=== PATIENT | female | born 2000 | race African-American/Black ===

== ENCOUNTER 2022-02-21 22:33 | Emergency (ER) | payer MEDICAID, OTHER ==
[~2022-02-21] VITALS: Ht 170 cm; Wt 111.1 kg
[~2022-02-21 22:33] MED LIST: SULF1TAB35 PO
[2022-02-21 22:39] VITALS: BP 150/96
--- NOTE | 2022-02-21 23:01 | ED Back Pain ---
General Chief Complaint: Back Problems Stated Complaint: SPINAL/NECK PAIN Nursing Triage Note: c/o upper/lower back pain x2 days, denies injury. Source of Information: Patient Exam Limitations: No Limitations History of Present Illness Date Seen by Provider: Feb 21, 2022 Time Seen by Provider: 22:53 Initial Comments Patient is a 21-year-old female who presents to the emergency department with a chief complaint of 3 days of lower back pain. She states the pain seems to radiate around the top of her hips from the center of her back into her lower abdomen. She denies any nausea, vomiting or diarrhea today. She was a little nauseous and describes a 101 fever yesterday. No URI symptoms reported, no cough or chest pain. No shortness of breath. No COVID concerns or flu concerns. No burning with urination or abnormal vaginal discharge. No black or bloody stools. She states she is taken Tylenol without relief of symptoms. No rashes, joint pain or swelling. No traumatic injuries reported. No significant heavy lifting above and beyond her normal work duties. Last menstrual period was about 2 weeks ago. She is on control. All other review of systems reviewed and negative except as stated. Timing/Duration: 2-3 Days Severity: Moderate Pain/Injury Location: Back Radiation: Other (abdomen) Modifying Factors: Improves With Immobilization Associated Symptoms: denies symptoms Allergies and Home Medications Allergies Coded Allergies: No Known Allergies (Unverified Allergy, Mild, 02/09/10) Patient Home Medication List Home Medication List Reviewed: Yes Discontinued Medications Sulfamethoxazole/Trimethoprim (Bactrim DS) 1 Each Tablet, 1 EACH PO BID Discontinued Reason: No Longer Taking Prescribed by: SUZY ROSE on 02/09/102112 Last Action: Discontinued Review of Systems Constitutional: fever (101 yesterday) EENTM: no symptoms reported Respiratory: no symptoms reported Cardiovascular: no symptoms reported Gastrointestinal: abdominal pain, nausea (yesterday) Genitourinary: no symptoms reported Musculoskeletal: back pain (low) Skin: no symptoms reported Psychiatric/Neurological: No Symptoms Reported All Other Systems Reviewed Negative Unless Noted: Yes Past Krgylod-Efmkph-Kvplre Hx Patient Social History Tobacco Use?: No Substance use?: No Alcohol Use?: No Pt feels they are or have been: No Past Medical History Surgery/Hospitalization HX: denies Last Menstrual Period: Feb 07, 2022 Physical Exam Vital Signs Vital Signs - First Documented 02/21/22 22:39 Temp 36.5 Pulse 111 Resp 16 B/P (MAP) 150/96 (114) Pulse Ox 99 O2 Delivery Room Air Capillary Refill : Less Than 3 Seconds Height, Weight, BMI Height: '" Weight: 122lbs. oz. 55.083678yx; 38.00 BMI Method: General Appearance: No Apparent Distress, WD/WN HEENT: PERRL/EOMI Neck: Normal Inspection, Non Tender, Supple Cardiovascular: Regular Rate, Rhythm, Normal Peripheral Pulses Respiratory: Lungs Clear, Normal Breath Sounds, No Accessory Muscle Use, No Respiratory Distress Gastrointestinal: Normal Bowel Sounds, Non Tender, Soft Back: Normal Inspection, No CVA Tenderness, Vertebral Tenderness (mild with lower lumbar paraspinous muscle tenderness) Extremity: Normal Capillary Refill, Normal Inspection, Normal Range of Motion, Non Tender, No Calf Tenderness Neurologic/Psychiatric: Alert, Oriented x3, No Motor/Sensory Deficits, Normal Mood/Affect, armed security officer II-XII Norm as Tested, Other (2+ patellar DTRs bilaterally. Normal plantar and dorsiflexion of the feet bilaterally. Good strength in the bilateral lower extremities. Negative straight leg raise bilaterally) Skin: Normal Color, Warm/Dry Progress/Results/Core Measures Results/Orders Vital Signs/I&O 02/21/22 22:39 Temp 36.5 Pulse 111 Resp 16 B/P (MAP) 150/96 (114) Pulse Ox 99 O2 Delivery Room Air Blood Pressure Mean: 114 Departure Impression Primary Impression: Low back pain Qualified Codes: M54.50 - Low back pain, unspecified Disposition: 01 HOME, SELF-CARE Condition: Stable Departure-Patient Inst. Decision time for Depature: 23:03 Referrals: [facility],LOCAL PHYSICIAN (PCP) Primary Care Physician Patient Instructions: Low Back Pain in Adults Add. Discharge Instructions: Alternate heat and ice to the areas that are sore in your low back. Gentle stretching exercises may help. Avoid significant heavy lifting over the next 24 to 48 hours. You can take lbrk-tjb-wdahcog Aleve, 2 tablets with food in the morning and 2 at night for pain. Or you can take ibuprofen, 3 tablets which is 600 mg every 6 hours with food as needed for pain. Return to the emergency department for any new, concerning or emergent complaints or worsening symptoms. SCOTTIE CARVALHO MD Feb 21, 2022 23:01
[2022-02-21] MEDS ORDERED: ORPHENADRINE 60 MG/2 ML (NORFLEX) AMP (ED ONLY) IM ONE (23:15)
[2022-02-21] MEDS ORDERED: KETOROLAC 60 MG/2 ML VIAL IM ONE (23:15)
== END 2022-02-21 23:22 | disposition home or self-care (01) ==
LOC: EDUNIT# 22:33 → ER 22:36
DX: M54.50 Low back pain, unspecified (principal)
CPT/HCPCS: 84703; 99284

== ENCOUNTER 2022-09-14 17:29 | Outpatient (CLI) | payer MEDICAID ==
[~2022-09-14] VITALS: Ht 167.7 cm; Wt 105.0 kg
[2022-09-14 18:00] VITALS: BP 123/68
[2022-09-14] MEDS ORDERED: PREN-37 PO (18:01)
[2022-09-14 18:05] VITALS: BP 123/68
[2022-09-14 18:20] LABS: CLARITY,URINE SL CLOUDY; COLOR,URINE DARK YELLOW; GLUCOSE, URINE (UA) NEGATIVE (NEGATIVE); KETONES,URINE 3+ (NEGATIVE); LEUKOCYTE ESTERASE ,URINE 2+ (NEGATIVE); NITRITE,URINE NEGATIVE (NEGATIVE); PH,URINE 6.5 (5-9); PROTEIN,URINE 2+ (NEGATIVE)
[2022-09-14 18:32] LABS: BACTERIA,URINE FEW /HPF; BILIRUBIN,URINE 2+ (NEGATIVE); WBC,URINE 25-50 /HPF; YEAST,URINE FEW /HPF
[2022-09-14 18:40] VITALS: BP 113/57
[2022-09-14] MEDS ORDERED: NS IV 1000 ML 1,000 ML IV SCH (18:45)
[2022-09-14 18:57] LABS: HEMATOCRIT 39 % (35-52); MEAN CORPUSCULAR HEMOGLOBIN 29 pg (25-34); MEAN CORPUSCULAR HGB CONC 33 g/dL (32-36); MEAN CORPUSCULAR VOLUME 86 fL (80-99); MEAN PLATELET VOLUME 10.5 fL (9.0-12.2); PLATELET COUNT 201 10^3/uL (130-400); WHITE BLOOD COUNT 15.6 10^3/uL (4.3-11.0)
[2022-09-14 20:24] LABS: ALBUMIN 3.1 GM/DL (3.2-4.5); BILIRUBIN,TOTAL 0.6 MG/DL (0.1-1.0); CREATININE SERUM 0.71 MG/DL (0.60-1.30); POTASSIUM 3.1 MMOL/L (3.6-5.0); TOTAL PROTEIN 6.7 GM/DL (6.4-8.2)
[2022-09-14] MEDS ORDERED: KCL 20 MEQ TAB (K-DUR) PO ONE ×2 (21:00→21:07)
[2022-09-14] MEDS ORDERED: ONDANSETRON 4 MG (ZOFRAN) ORAL DISSOLVE TAB PO ONE (21:00)
[2022-09-14] MEDS ORDERED: ONDANSETRON 4 MG (ZOFRAN) ORAL DISSOLVE TAB ONE (21:06)
--- NOTE | 2022-09-15 08:17 | Physician Query-Final Dx ---
09/15/22 0817: Clinic Account Progress/Dx Physician Query: Please give diagnosis Please include # weeks gestation Date of Service Sep 14, 2022 at 17:29 DEBBIE CHRISTENSEN MD 09/15/22 1640: Clinic Account Progress/Dx DIAGNOSIS: Diagnosis Nausea and vomiting Urinary Tract Infection Second trimester 27 weeks gestation ,NovSep 15, 2022 08:17 DEBBIE CHRISTENSEN MD Sep 15, 2022 16:40
== END 2022-09-14 21:36 | disposition home or self-care (01) ==
LOC: WSo 17:29 → LDRP 17:29 → WSo 21:36
PROVIDERS: ATTEND Family Medicine
DX: O23.42 Unspecified infection of urinary tract in pregnancy, second trimester (principal); O26.892 Other specified pregnancy related conditions, second trimester; R11.2 Nausea with vomiting, unspecified; Z3A.27 27 weeks gestation of pregnancy
CPT/HCPCS: 36415; 80053; 81000; 85027; 87088; 96360; 99214

== ENCOUNTER 2022-11-13 11:18 | Emergency (ER) | payer MEDICAID ==
[~2022-11-13] VITALS: Ht 167.7 cm; Wt 110.9 kg
[~2022-11-13 11:18] MED LIST changes: +PREN-37 PO
--- NOTE | 2022-11-13 11:43 | ED General ---
General Chief Complaint: General Problems/Pain Stated Complaint: SOA | FEELS FAINT Nursing Triage Note: pt states since she woke up this morning she has been short of breath and dizzy. states nausea and vomiting yesterday, denies fever. pt is 36 weeks due date 12/11/22 Source of Information: Patient Exam Limitations: No Limitations (SAEDENROBYN) History of Present Illness Date Seen by Provider: Nov 13, 2022 Time Seen by Provider: 11:38 Initial Comments 22 F @ 36 wks presents with SOA and dizziness. reports she was unable to catch her breath and felt wobbly which has never happened before. yesterday at [facility] appt she became nauseas and vomited, but claims no in sighting events. During dizziness spells pt become diaphoretic which resolves once she sits down and takes a few deep breaths. No problems with voiding or BMs. Denies any complications with . Denies any fever, chills, pain, palpitations, or LOC. Significant other noticed her "gasping for air" during the night, which was the first time this has been noticed. Denies any sick contacts. Claims normal vaginal discharge but no blood or copious amounts of fluid. Pt reports she has been able to feel movements. Timing/Duration: 12 Hours Severity: Mild Associated Systoms: No Chest Pain, No Cough; Diaphoresis; No Fever/Chills, No Headaches; Loss of Appetite (mild), Nausea/Vomiting, Shortness of Air (SAUCEROBYN) Allergies and Home Medications Allergies Coded Allergies: NKANo Known Allergies (Unverified Allergy, Mild, 02/09/10) Patient Home Medication List Home Medication List Reviewed: Yes (JENNYROBYN) Vit/Iron Fumarate/FA ( Tablet) 27 Mg Iron-800 Mcg Tablet, 1 EACH PO DAILY, (Reported) Entered as Reported by: RAMILA FATIMA on 09/14/22 341 Review of Systems Review of Systems Constitutional: No chills; diaphoresis, dizziness; No fever EENTM: blurred vision (during dizziness events); No vision loss Respiratory: No cough; dyspnea on exertion; No phlegm; short of breath Cardiovascular: No chest pain, No edema, No palpitations Gastrointestinal: No abdominal pain, No constipation, No diarrhea; nausea, vomiting Genitourinary: No decreased output, No discharge, No dysuria, No frequency : Yes Expected Date of Delivery: Dec 11, 2022 Musculoskeletal: back pain Skin: No change in color, No change in hair/nails Psychiatric/Neurological: No Symptoms Reported Hematologic/Lymphatic: No Symptoms Reported Immunological/Allergic: no symptoms reported (SAEDENROBYN) Past Uvmjxqp-Tgjdgf-Gcyaah Hx Patient Social History Tobacco Use?: No Substance use?: No Alcohol Use?: No (SAUCE,ROBYN) Immunizations Up To Date Influenza Vaccine Up-to-Date: No; Not Current (SAUCE,ROBYN) Past Medical History Surgery/Hospitalization HX: denies (SAUCEROBYN) Physical Exam Vital Signs Vital Signs - First Documented 11/13/22 11:25 Temp 35.9 Pulse 91 Resp 18 B/P (MAP) 127/86 (100) Pulse Ox 99 O2 Delivery Room Air (SCOTTIE CARVALHO MD) Vital Signs Capillary Refill : Less Than 3 Seconds (ROBYN ALVARADO) Height, Weight, BMI Height: '" Weight: 122lbs. oz. 55.185564tk; 39.00 BMI Method: General Appearance: No Apparent Distress, WD/WN Eyes: Bilateral Eye Normal Inspection, Bilateral Eye PERRL, Bilateral Eye EOMI, Bilateral Eye Abnormal EOM HEENT: PERRL/EOMI Neck: Full Range of Motion, Normal Inspection, Non Tender, Supple Respiratory: Chest Non Tender, Lungs Clear, Normal Breath Sounds, No Accessory Muscle Use, No Respiratory Distress Cardiovascular: Regular Rate, Rhythm, No Edema, No Murmur, Normal Peripheral Pulses Gastrointestinal: Normal Bowel Sounds, No Pulsatile Mass, Non Tender, Soft, Other (gravid ) Back: Normal Inspection, No CVA Tenderness, No Vertebral Tenderness Extremity: Normal Capillary Refill, Normal Inspection, Non Tender, No Calf Tenderness, No Pedal Edema Neurologic/Psychiatric: Alert, Oriented x3, No Motor/Sensory Deficits Skin: Normal Color, Warm/Dry Lymphatic: No Adenopathy (SAROSS HARMONROBYN) Progress/Results/Core Measures Suspected Sepsis SIRS Temperature: Pulse: 91 Respiratory Rate: 18 Blood Pressure 127 /86 Mean: 100 (LAUREANO ALVARADOON) Results/Orders My Orders Orders - SCOTTIE CARVALOH MD Heart Tones (11/13/22 11:42) (SCOTTIE CARVALHO MD) Vital Signs/I&O 11/13/22 11/13/22 11/13/22 11:25 11:30 12:07 Temp 35.9 36.7 Pulse 91 88 Resp 18 18 B/P (MAP) 127/86 (100) 137/84 Pulse Ox 99 98 O2 Delivery Room Air Room Air Room Air (SCOTTIE CARVALHO MD) Vital Signs/I&O Capillary Refill : Less Than 3 Seconds (SAUCEROBYN) Blood Pressure Mean: 100 Progress Note : Time: 11:56 Progress Note Patient seen and examined by me. I have reviewed and agree with medical student's documentation. 22yo female, with PNC through Dr Phoenix. C/o SOB worse with moving around. No other associated symptoms. Maybe a little nild cramping yest. Seen by OB yest. No problems with . No swelling, headache, vision changes. Non smoker. No fam history of blood clots. No recent illnesses. PE: remarkable for gravid abdomen. NT. + FHTs 143. no LE edema, no calf pain or Karol's. VSS (BP 127/86) Sats 99% on RA with even and unlabored resps and clear lungs. Assessment: dyspnea; term preg Plan: follow up with OB as directed. return precautions. (SCOTTIE CARVALHO MD) Departure Impression Primary Impression: Dyspnea Qualified Codes: R06.00 - Dyspnea, unspecified Additional Impression: Term Disposition: 01 HOME, SELF-CARE Condition: Stable Departure-Patient Inst. Decision time for Depature: 12:00 (SCOTTIE CARVALHO MD) Referrals: CARMINE PHOENIX MD (PCP/Family) Primary Care Physician Patient Instructions: - The Ninth Month Add. Discharge Instructions: Drink plenty of fluids to stay well hydrated. If you have any worsening shortness of breath, especially with severe headache, swelling in legs or worsening abdominal pain/cramping - please come back to the Emergency Department for re-evaluation. Keep your scheduled follow up with Dr Phoenix. Verification and Attestation of Medical Student E/M Service A medical student performed and documented this service in my presence. I reviewed and verified all information documented by the medical student and made modifications to such information, when appropriate. I personally performed the physical exam and medical decision making. Scottie Carvalho, Nov 13, 2022,12:01 (SCOTTIE CARVALHO MD) Copy Copies To 1: CARMINE PHOENIX MD, DAULTON Nov 13, 2022 11:43 SCOTTIE CARVALHO MD Nov 13, 2022 12:01
[2022-11-13 12:07] VITALS: BP 137/84
== END 2022-11-13 12:08 | disposition home or self-care (01) ==
LOC: EDUNIT# 11:18 → ER 11:20
DX: O99.513 Diseases of the respiratory system complicating pregnancy, third trimester (principal); R06.00 Dyspnea, unspecified; Z3A.36 36 weeks gestation of pregnancy

== ENCOUNTER 2022-12-16 19:30 | Inpatient (IN) | payer MEDICAID ==
[~2022-12-16] VITALS: Ht 167.7 cm; Wt 115.2 kg
[2022-12-16 20:00] VITALS: BP 131/78
[2022-12-16] MEDS ORDERED: D5 LR IV SOLUTION 1,000 ML IV ONE (20:25)
[2022-12-16] MEDS ORDERED: AMPICILLIN FOR IV USE 2,000 MG in NS (IVPB) 50 ML IV SCH (20:33)
[2022-12-16 20:44] LABS: BILIRUBIN,URINE NEGATIVE (NEGATIVE); CLARITY,URINE CLOUDY; COLOR,URINE YELLOW; GLUCOSE, URINE (UA) NEGATIVE (NEGATIVE); KETONES,URINE NEGATIVE (NEGATIVE); LEUKOCYTE ESTERASE ,URINE TRACE (NEGATIVE); NITRITE,URINE NEGATIVE (NEGATIVE); PROTEIN,URINE NEGATIVE (NEGATIVE)
[2022-12-16] MEDS ORDERED: MINERAL OIL 30 ML UDC TOP PRN (20:45)
[2022-12-16] MEDS ORDERED: CATHETER FLUSH 10 ML SYR IV PRN (20:45)
[2022-12-16 20:46] LABS: BASOPHILS % (AUTO) 0 % (0-10); MEAN CORPUSCULAR HGB CONC 33 g/dL (32-36)
[2022-12-16 20:48] LABS: EOSINOPHILS % (AUTO) 0 % (0-10); HEMATOCRIT 36 % (35-52); HEMOGLOBIN 11.8 g/dL (11.5-16.0); LYMPHOCYTES # (AUTO) 2.3 10^3/uL (1.0-4.0); LYMPHOCYTES % (AUTO) 21 % (12-44); MEAN CORPUSCULAR HEMOGLOBIN 27 pg (25-34); MEAN CORPUSCULAR VOLUME 83 fL (80-99); MEAN PLATELET VOLUME 11.8 fL (9.0-12.2); MONOCYTES # (AUTO) 1.5 10^3/uL (0.0-1.0); MONOCYTES % (AUTO) 14 % (0-12); NEUTROPHILS # (AUTO) 7.1 10^3/uL (1.8-7.8); NEUTROPHILS % (AUTO) 64 % (42-75); PLATELET COUNT 203 10^3/uL (130-400); WHITE BLOOD COUNT 11.1 10^3/uL (4.3-11.0)
[2022-12-16 20:50] LABS: SMEAR SCAN COMMENT YES
[2022-12-16] MEDS: D5 LR IV SOLUTION 1,000 ML IV SCH (20:51)
[2022-12-16 20:52] LABS: AMORPHOUS SEDIMENT,UR LARGE AMOR PHOSPHATE /LPF; WBC,URINE 0-2 /HPF
[2022-12-16 20:53] VITALS: BP 111/65
[2022-12-16 20:54] LABS: BACTERIA,URINE MODERATE /HPF
[2022-12-16] MEDS ORDERED: diphenhydrAMINE 25 MG TAB (BENADRYL) PO ONE (22:15)
[2022-12-16 23:35] VITALS: BP 122/71
[2022-12-17] VITALS (43 sets, daily range): BP systolic 97–158; BP diastolic 51–99
[2022-12-17] MEDS: AMPICILLIN FOR IV USE 1,000 MG in NS (IVPB) 50 ML IV SCH ×4 (01:01→13:17)
[2022-12-17] MEDS: D5 LR IV SOLUTION 1,000 ML IV SCH ×2 (05:19→09:23)
--- NOTE | 2022-12-17 07:18 | History & Physical-OB ---
OB - Chief Complaint & HPI Date/Time Date of Admission: Date of Admission: Dec 16, 2022 at 19:30 Date seen by a Provider: Dec 17, 2022 Time Seen by a Provider: 06:20 Chief Complaint/History OB-Reason for Admission/Chief: Induction of Labor Hx : 1 Hx Para: 0 Expected Date of Delivery: Dec 11, 2022 Gestational Age in Weeks: 40 Gestational Age in Days: 5 Indication for induction: post dates Admission Nurse Assessment Rev: Yes History of Labs GBS positive Allergies and Home Medications Allergies Coded Allergies: No Known Drug Allergies (Unverified , 12/16/22) Patient Home Medication List Home Medication List Reviewed: Yes Vit/Iron Fumarate/FA ( Tablet) 27 Mg Iron-800 Mcg Tablet, 1 EACH PO DAILY, (Reported) Entered as Reported by: RAMILA FATIMA on 09/14/221800 Last Action: Last Taken Edited OB - History Hx of Present Care: Yes Ultrasounds: Normal mid trimester US Obstetrical Complications: None Medical Complications: None Patient Past Medical History No chronic medical problems Immunizations Influenza Vaccine Up-to-Date: No; Not Current OB - Admission Exam Physical Exam Vitals: Vital Signs 12/16/22 12/17/22 20:00 06:34 Temp 36.2 Pulse 93 Resp 16 B/P (MAP) 124/61 (82) Pulse Ox 99 O2 Delivery Room Air HEENT: Moist Membranes Heart: Rhythm Normal Lungs: Clear Abdomen: Gravid Cervical Dilatation: 1cm Effacement: 50% Station: -3 Membranes: Intact Heart Rate: 140's Accelerations: Accelerations Present Decelerations: No Decelerations Short Term Variability: Present Fdc Variability: Average (6-25) Contractions on Admission: >10 Minutes Apart (on presentation) Intensity: Mild Wilcox Scoring Tool (Modified) Dilation (cm): 1-2cm (1) Effacement (%): 31-51% (1) Descent/Station: -3 (0) Cervix Consistency: Medium(1) Cervix Position: Middle/Mid-Position (1) Wilcox Score: 2 Labs Laboratory Tests Test 12/16/22 20:39 Range/Units White Blood Count 11.1 H 4.3-11.0 10^3/uL Red Blood Count 4.31 3.80-5.11 10^6/uL Hemoglobin 11.8 11.5-16.0 g/dL Hematocrit 36 35-52 % Mean Corpuscular Volume 83 80-99 fL Mean Corpuscular Hemoglobin 27 25-34 pg Mean Corpuscular Hemoglobin Concent 33 32-36 g/dL Red Cell Distribution Width 13.3 10.0-14.5 % Platelet Count 203 130-400 10^3/uL Mean Platelet Volume 11.8 9.0-12.2 fL Immature Granulocyte % (Auto) 1 % Neutrophils (%) (Auto) 64 42-75 % Lymphocytes (%) (Auto) 21 12-44 % Monocytes (%) (Auto) 14 H 0-12 % Eosinophils (%) (Auto) 0 0-10 % Basophils (%) (Auto) 0 0-10 % Neutrophils # (Auto) 7.1 1.8-7.8 10^3/uL Lymphocytes # (Auto) 2.3 1.0-4.0 10^3/uL Monocytes # (Auto) 1.5 H 0.0-1.0 10^3/uL Eosinophils # (Auto) 0.0 0.0-0.3 10^3/uL Basophils # (Auto) 0.0 0.0-0.1 10^3/uL Immature Granulocyte # (Auto) 0.1 0.0-0.1 10^3/uL Percent Immature Platelet Fraction 5.4 0.0-7.6 % Urine Color YELLOW Urine Clarity CLOUDY Urine pH 8.0 5-9 Urine Specific [place] 1.020 1.016-1.022 Urine Protein NEGATIVE NEGATIVE Urine Glucose (UA) NEGATIVE NEGATIVE Urine Ketones NEGATIVE NEGATIVE Urine Nitrite NEGATIVE NEGATIVE Urine Bilirubin NEGATIVE NEGATIVE Urine Urobilinogen 0.2 < = 1.0 MG/DL Urine Leukocyte Esterase TRACE H NEGATIVE Urine RBC (Auto) NEGATIVE NEGATIVE Urine RBC NONE /HPF Urine WBC 0-2 /HPF Urine Squamous Epithelial Cells 10-25 H /HPF Urine Crystals PRESENT H /LPF Urine Amorphous Sediment LARGE DAVEY PHOSPHATE H /LPF Urine Bacteria MODERATE H /HPF Urine Casts NONE /LPF Urine Mucus MODERATE H /LPF Urine Culture Indicated YES Smear Scan YES OB - Assessment/Plan/Diagnosis Assessment Assessment: induction of labor Admission Dx 1. IUP at [id number] gestation Admission Status: Inpatient Order (span 2 midnights) Reason for Inpatient Admission: Induction of labor Plan Plan: Induction Induction Method: per Misoprostol Protocol Other Plan -She would like epidural -pitocin as necessary CARMINE PHOENIX MD Dec 17, 2022 07:18
[2022-12-17] MEDS ORDERED: OXYTOCIN PRE-MIX DRIP 500 ML IV SCH ×2 (07:30→14:45)
[2022-12-17] MEDS ORDERED: fentaNYL 2 mcg/ml BUPIVA 0.125 100 ML ONE (09:55)
[2022-12-17] MEDS ORDERED: BUPIVACAINE 0.25% 10 ML (SENSORCAINE) VIAL ONE (09:56)
[2022-12-17] MEDS ORDERED: fentaNYL INJ 100 MCG/2 ML AMP ONE ×2 (09:56→14:26)
[2022-12-17] MEDS ORDERED: CATHETER FLUSH 10 ML SYR IV PRN (10:30)
[2022-12-17] MEDS ORDERED: LACTATED RINGERS 1,000 ML IV ONE (10:30)
[2022-12-17] MEDS ORDERED: fentaNYL 2 mcg/ml BUPIVA 0.125 100 ML IV SCH (10:30)
[2022-12-17] MEDS ORDERED: NALOXONE 0.4 MG/ML 1 ML (NARCAN) VIAL IV PRN ×2 (10:30→14:45)
[2022-12-17] MEDS ORDERED: TERBUTALINE INJ 1 MG/ML (BRETHINE) AMP SC ONE (14:15)
[2022-12-17] MEDS ORDERED: CITRIC ACID/SOB CIT (BICITRA) 30 ML UDC ONE (14:20)
[2022-12-17] MEDS ORDERED: FAMOTIDINE 20MG/2ML IV (PEPCID) ONE (14:20)
[2022-12-17] MEDS ORDERED: TERBUTALINE INJ 1 MG/ML (BRETHINE) AMP ONE (14:20)
[2022-12-17] MEDS ORDERED: METOCLOPRAMIDE INJ 10 MG/2 ML (REGLAN) ONE (14:20)
--- NOTE | 2022-12-17 14:41 | Progress Note ---
Standard Progress Note Progress Notes/Assess & Plan Date Seen by a Provider: Dec 17, 2022 Time Seen by a Provider: 14:25 Progress/Assessment & Plan I was contacted by Dr. Villalba with urgent need to perform section on this patient which was an IOL of his from today. heart rate tracing was non-reassuring and patient is remote from vaginal delivery. I discussed with the patient risk of surgery, as well as indication of intolerance of labor. Will proceed with mirtha. Pitocin was stopped when I had arrived, and terbutaline was given as a rescue with stabilization of heart tracing in the meantime. ZEFERINO KOROMA DO Dec 17, 2022 14:41
--- NOTE | 2022-12-17 14:42 | Labor Progress Note ---
Labor Progress Note Labor Progress Note Date Seen by Provider: Dec 17, 2022 Time Seen by Provider: 14:20 Patient is no longer receiving pitocin. Terbutline given to stop contractions. monitor with non-reassuring pattern over the last 30 minutes. Late decelerations noted and some repetitive. Patient only dilated to 4 cm. Will proceed with primary LTCS with Dr Small notified. Patient and family in agreement. Vitals - Labs Vital Signs - I&O Vital Signs Date Time Temp Pulse Resp B/P (MAP) Pulse Ox O2 Delivery O2 Flow Rate FiO2 12/17/22 07:11 93 16 124/61 (82) 99 Room Air 12/17/22 06:34 36.2 93 16 124/61 (82) Room Air 12/17/22 05:35 36.2 80 18 134/88 (103) Room Air 12/17/22 04:36 36.3 68 18 119/74 (89) Room Air 12/17/22 03:45 36.5 81 16 120/72 (88) Room Air 12/17/22 02:36 36.5 68 16 109/57 (74) Room Air 12/17/22 01:35 36.5 72 16 99/55 (70) Room Air 12/17/22 00:36 36.5 66 16 117/67 (84) Room Air 12/16/22 23:35 36.4 58 18 122/71 (88) Room Air 12/16/22 20:53 36.5 75 18 111/65 (80) Room Air 12/16/22 20:00 36.5 84 18 99 Room Air I & O 12/17/22 07:00 Intake Total 100 ml Balance 100 ml Labs Laboratory Tests 12/16/22 20:39: White Blood Count 11.1H, Red Blood Count 4.31, Hemoglobin 11.8, Hematocrit 36, Mean Corpuscular Volume 83, Mean Corpuscular Hemoglobin 27, Mean Corpuscular Hemoglobin Concent 33, Red Cell Distribution Width 13.3, Platelet Count 203, Mean Platelet Volume 11.8, Immature Granulocyte % (Auto) 1, Neutrophils (%) (Auto) 64, Lymphocytes (%) (Auto) 21, Monocytes (%) (Auto) 14H, Eosinophils (%) (Auto) 0, Basophils (%) (Auto) 0, Neutrophils # (Auto) 7.1, Lymphocytes # (Auto) 2.3, Monocytes # (Auto) 1.5H, Eosinophils # (Auto) 0.0, Basophils # (Auto) 0.0, Immature Granulocyte # (Auto) 0.1, Percent Immature Platelet Fraction 5.4, Urine Color YELLOW, Urine Clarity CLOUDY, Urine pH 8.0, Urine Specific [place] 1.020, Urine Protein NEGATIVE, Urine Glucose (UA) NEGATIVE, Urine Ketones NEGATIVE, Urine Nitrite NEGATIVE, Urine Bilirubin NEGATIVE, Urine Urobilinogen 0.2, Urine Leukocyte Esterase TRACEH, Urine RBC (Auto) NEGATIVE, Urine RBC NONE, Urine WBC 0-2, Urine Squamous Epithelial Cells 10-25H, Urine Crystals PRESENTH, Urine Amorphous Sediment LARGE DAVEY PHOSPHATEH, Urine Bacteria MODERATEH, Urine Casts NONE, Urine Mucus MODERATEH, Urine Culture Indicated YES, Smear Scan YES CARMINE PHOENIX MD Dec 17, 2022 14:42
--- NOTE | 2022-12-17 14:44 | Discharge Inst-Women's Service ---
Discharge Inst-Women's Serv Depart Medication/Instructions New, Converted or Re-Newed RX: Transmitted to Pharmacy Final Diagnosis POD 2 PLTCS Problems Reviewed?: Yes Consults/Follow Up Additional Follow Up: Yes Orders/Referrals Dr. Small in 7-[address] Villalba in 6 weeks Activity Activity: Activity as Tolerated Driving Instructions: No Driving for 1 Week NO SMOKING: NO SMOKING Nothing Inside Vagina: No Douching, No [place], No Tampons Diet Discharge Diet: No Restrictions Symptoms to Report to : Bleeding Excessive, Urine Color Change, Fever Over 101 Degrees F, Vaginal Bleeding Increase, Questions/Concerns For Any Problems or Questions: Contact Your Physician Skin/Wound Care Infection Signs and Symptoms: Increased Redness, Foul Odor of Wound, Increased Drainage, Skin Itchy or Has a Rash, Increased Swelling, Temperature Above 101 F Operative Area Clean and Dry: Keep Incision Clean/Dry Stitches/Jannie/Dermabond: Dermabond, Care of Stitches Bathing Instructions: ZEFERINO Falk DO Dec 17, 2022 14:44
[2022-12-17] MEDS ORDERED: ONDANSETRON 4 MG/2 ML (SDV) Z0FRAN IVP PRN (14:45)
[2022-12-17] MEDS ORDERED: ceFAZolin INJECTION 2,000 MG in NS (IVPB) 50 ML IV ONE (14:45)
[2022-12-17] MEDS ORDERED: MEASLES,MUMPS,RUBELLA 1 EA INJ SC SCH (14:45)
[2022-12-17] MEDS ORDERED: TETANUS,DIPTH,PERTUSS P/F (BOOSTRIX) 0.5 ML VIAL IM SCH (14:45)
[2022-12-17] MEDS ORDERED: OXYTOCIN PRE-MIX DRIP 500 ML IV ONE ×2 (14:46→14:47)
[2022-12-17] MEDS ORDERED: ONDANSETRON 4 MG/2 ML (SDV) Z0FRAN ONE (14:46)
[2022-12-17] MEDS ORDERED: ceFAZolin INJECTION 2,000 MG ONE (14:54)
[2022-12-17] MEDS ORDERED: METHYLERGONOVINE 0.2 MG/ML (METHERGINE) AMP ONE (14:58)
[2022-12-17] MEDS ORDERED: METOCLOPRAMIDE INJ 10 MG/2 ML (REGLAN) IV ONE (15:00)
[2022-12-17] MEDS ORDERED: CITRIC ACID/SOB CIT (BICITRA) 30 ML UDC PO ONE (15:00)
[2022-12-17] MEDS ORDERED: METHYLERGONOVINE 0.2 MG/ML (METHERGINE) AMP IM ONE (15:00)
[2022-12-17] MEDS ORDERED: FAMOTIDINE 20MG/2ML IV (PEPCID) IVP ONE (15:00)
[2022-12-17] MEDS ORDERED: ceFAZolin INJECTION 1,000 MG VIAL IV ONE (15:00)
[2022-12-17] MEDS ORDERED: LACTATED RINGERS 1,000 ML IV PRN ×2 (15:00)
[2022-12-17] MEDS ORDERED: BUPIVACAINE 0.5% 30 ML (SENSORCAINE) VIAL ONE (15:18)
[2022-12-17] MEDS ORDERED: LIDOCAINE PF 2% 5 ML (XYLOCAINE) VIAL ONE (15:18)
[2022-12-17] MEDS ORDERED: ACHD5005 PO (15:32)
[2022-12-17] MEDS ORDERED: IBUP-844 PO (15:32)
[2022-12-17] MEDS ORDERED: DOCU100C37 PO (15:32)
--- NOTE | 2022-12-17 16:28 | OPERATIVE REPORT ---
PREOPERATIVE DIAGNOSES: 1. A 22-year-old G1, P0 at 40 weeks gestation. 2. intolerance of labor. POSTOPERATIVE DIAGNOSES: 1. A 22-year-old G1, P0 at 40 weeks gestation. 2. intolerance of labor. 3. Nuchal cord x2. PROCEDURE: Primary low transverse section. SURGEON: Gray Koroma DO PAYROLL LEAD: Dr. Abhijeet Villalba, who was necessary for manipulation and retraction throughout the procedure. ANESTHESIA: Epidural, which was bolused. ESTIMATED BLOOD LOSS: 300 mL. URINE OUTPUT: 70 mL clear at the end of the procedure. FLUIDS: 1000 mL lactated Ringer's solution. FINDINGS: Live female weighing 6 pounds 13 ounces, Apgars of 8 and 9. Grossly normal appearing uterus, bilateral fallopian tubes and ovaries. SPECIMENS SENT: Placenta. INDICATIONS FOR PROCEDURE: This 22-year-old female, was a patient, who was induced by Dr. Villalba. There was concern for heart tone tracing and intolerance to labor, at which point, I was contacted urgently proceed with . I presented to bedside to review with the patient the risk of the surgery versus the risk of voiding with distress. The patient was agreeable to proceed. After all of her questions were answered to her family present consent was obtained. The patient was taken to the operating room. OPERATIVE REPORT IN DETAIL: Once in the operating room, epidural analgesia was bolused and found to be adequate, was placed in the supine position with leftward tilt, prepped and draped in normal sterile fashion. Timeout was performed. Anesthesia was tested. I then make a Pfannenstiel skin incision with a knife and carried down to underlying fascia using Bovie cautery. Fascial incision extended laterally using Bovie cautery and the superior aspect of fascial incision was then grasped with Manjit clamps, tented up and dissected off the underlying rectus muscles. The inferior aspect of the fascial incision was then grasped with Manjit clamps, tented up and dissected off the underlying rectus muscles. Rectus muscles were dissected down in the midline sharply, which exposed the peritoneum, which I entered bluntly using blunt traction. Neptali ring retractor was placed in the peritoneal incision, which offers excellent lateral sidewall retraction. I identified the lower uterine segment was found to be thinned out and make a low transverse incision to the vesicouterine peritoneum and bluntly dissected off the lower uterine segment, creating a bladder flap and then proceeded with my myotomy until membranes were visualized, at which point, I extended the uterine incision laterally and superiorly using bandage scissors. Amniotomy was performed in the process of doing my myotomy. The was found in vertex presentation. With gentle fundal pressure, the infant's head was elevated to the incision where the nares and oropharynx were bulb suctioned. Nuchal cord was reduced x2 anterior shoulder, posterior shoulders were delivered. The infant was brought to the operative field where cord was clamped and cut and was handed off to Dr. Gonsales for further attendance. Cord blood was collected. Three-vessel cord with intact placenta was delivered spontaneously thereafter. IV Pitocin is initiated to facilitate uterine contraction. Uterine fundus confirmed by manual massage. The uterus was then exteriorized and cleared of all endometrial clots and debris. I then proceeded with closing the uterine incision using 0 Vicryl suture in a running locked fashion. Second layer of imbricating 0 Monocryl was placed. Excellent hemostasis was noted After doing this, I then placed the uterus back in the pelvis and copiously irrigated the pelvis using normal saline. Once again, there was noted from any of my dissection planes. I placed Interceed antiadhesive over my low transverse incision. I removed the Neptali ring retractor and then proceeded with closing the peritoneum using 3-0 Vicryl suture in a running fashion. The rectus muscles were reapproximated using 3-0 Vicryl suture in interrupted fashion. The fascia was reapproximated using 0 Vicryl suture in a running fashion. Subcutaneous tissue was reapproximated using 3-0 plain in interrupted subcutaneous stitch and skin reapproximated using 4-0 Monocryl running subcuticular. Dermabond was applied to incision and sterile dressing was adhesed with white tape. The patient tolerated the procedure well and was taken to recovery area in stable condition. Lap and sponge counts were correct at the end of the procedure. Instrument counts correct as well. Two grams of Ancef and 500 mg of Flagyl were given preoperatively for infection prophylaxis. Job ID: [id number] DocumentID: [id number] Dictated Date: 12/17/2022 15:37:01 Videotape Operator Date: 12/17/2022 16:26:00 Dictated By: GRAY KOROMA DO
[2022-12-17] MEDS: KETOROLAC 30 MG/ML VIAL IV SCH ×2 (16:48→22:19)
[2022-12-17] MEDS: DOCUSATE SODIUM 100 MG (COLACE) CAP PO SCH (20:54)
[2022-12-18 01:15] VITALS: BP 110/69
[2022-12-18 04:42] VITALS: BP 108/63
[2022-12-18] MEDS: KETOROLAC 30 MG/ML VIAL IV SCH ×2 (04:42→10:03)
[2022-12-18] MEDS: CATHETER FLUSH 10 ML SYR IV SCH ×2 (04:42→06:00)
[2022-12-18 05:28] LABS: BASOPHILS % (AUTO) 0 % (0-10); EOSINOPHILS % (AUTO) 0 % (0-10); HEMATOCRIT 28 % (35-52); HEMOGLOBIN 9.2 g/dL (11.5-16.0); LYMPHOCYTES # (AUTO) 2.4 10^3/uL (1.0-4.0); LYMPHOCYTES % (AUTO) 17 % (12-44); MEAN CORPUSCULAR HEMOGLOBIN 27 pg (25-34); MEAN CORPUSCULAR HGB CONC 32 g/dL (32-36); MEAN CORPUSCULAR VOLUME 84 fL (80-99); MEAN PLATELET VOLUME 10.8 fL (9.0-12.2); MONOCYTES # (AUTO) 1.9 10^3/uL (0.0-1.0); MONOCYTES % (AUTO) 13 % (0-12); NEUTROPHILS # (AUTO) 9.7 10^3/uL (1.8-7.8); NEUTROPHILS % (AUTO) 69 % (42-75); PLATELET COUNT 167 10^3/uL (130-400); WHITE BLOOD COUNT 14.1 10^3/uL (4.3-11.0)
[2022-12-18] MEDS: HYDROcodone/APAP 5 MG/325 MG (LORTAB) TAB PO PRN ×2 (06:39→15:13)
--- NOTE | 2022-12-18 08:12 | Postpartum Progress Note ---
Note Note Day # 1 Subjective: Patient is without complaints. Ambulating, voiding. Tolerating a regular diet without nausea or vomiting. Normal lochia. Pain is well controlled with oral pain medications. Objective: Physical Exam: General - Alert and oriented, no apparent distress Abdomen - Soft, appropriately tender to palpation, non-distended, fundus firm at umbilicus Extremities - no edema, negative Karol's bilaterally Incision- c/d/i Assessment: POD 1 PLTCS Plan: Routine care. Encourage breast feeding. Encourage ambulation. Ferrous sulfate supplementation. Plan for discharge tomorrow Vitals - Labs Vital Signs - I&O Vital Signs Date Time Temp Pulse Resp B/P (MAP) Pulse Ox O2 Delivery O2 Flow Rate FiO2 12/18/22 04:42 36.8 75 18 108/63 (78) 99 Room Air 12/18/22 01:15 36.6 77 18 110/69 (83) 99 Room Air 12/17/22 20:54 36.8 90 18 118/65 (82) 98 Room Air 12/17/22 16:44 Room Air 12/17/22 16:15 36.8 20 130/57 (81) 100 Room Air 12/17/22 16:15 Room Air 12/17/22 16:00 37.0 20 158/58 (91) 99 Room Air 12/17/22 16:00 Room Air 12/17/22 15:45 36.9 20 111/61 (78) 99 Room Air 12/17/22 15:45 Room Air 12/17/22 15:29 Room Air 12/17/22 15:29 36.9 20 97/51 (66) 99 Room Air 12/17/22 14:15 85 18 133/65 (87) 97 Non Rebreather 10.00 12/17/22 14:00 67 18 109/55 (73) 97 Non Rebreather 10.00 12/17/22 13:45 65 18 107/58 (74) 98 Non Rebreather 10.00 12/17/22 13:30 67 18 106/58 (74) 96 Room Air 12/17/22 13:15 81 18 117/55 (75) 96 Room Air 12/17/22 13:00 75 18 104/59 (74) 97 Room Air 12/17/22 12:45 37.0 65 18 105/56 (72) 97 Room Air 12/17/22 12:30 74 18 109/56 (73) 98 Room Air 12/17/22 12:15 67 18 107/57 (74) 98 Room Air 12/17/22 12:00 71 18 107/55 (72) 98 Room Air 12/17/22 11:45 89 18 116/59 (78) 99 Room Air 12/17/22 11:30 95 18 99 Room Air 12/17/22 11:15 88 18 109/52 (71) 96 Room Air 12/17/22 11:00 90 18 101/58 (72) 96 Room Air 12/17/22 10:45 79 18 98/55 (69) 97 Room Air 12/17/22 10:26 36.8 98 18 153/59 (90) 98 Room Air 12/17/22 10:22 83 18 115/66 (82) 98 Room Air 12/17/22 10:18 82 18 112/64 (80) 100 Room Air 12/17/22 10:15 98 18 118/64 (82) 100 Room Air 12/17/22 10:12 98 18 114/72 (86) 100 Room Air 12/17/22 10:09 79 18 120/68 (85) 100 Room Air 12/17/22 10:06 90 18 118/61 (80) 99 Room Air 12/17/22 10:03 91 18 116/73 (87) 100 Room Air 12/17/22 10:00 112 18 135/99 (111) 97 Room Air 12/17/22 09:45 94 16 136/84 (101) 100 Room Air 12/17/22 09:30 85 16 138/81 (100) 100 Room Air 12/17/22 09:15 93 16 154/80 (104) 98 Room Air 12/17/22 09:00 80 16 125/75 (92) 100 Room Air 12/17/22 08:30 67 16 112/67 (82) 100 Room Air I & O 12/18/22 07:00 Intake Total 3650 ml Output Total 820 ml Balance 2830 ml Labs Laboratory Tests 12/18/22 05:03: White Blood Count 14.1H, Red Blood Count 3.37L, Hemoglobin 9.2#L, Hematocrit 28L , Mean Corpuscular Volume 84, Mean Corpuscular Hemoglobin 27, Mean Corpuscular H emoglobin Concent 32, Red Cell Distribution Width 13.6, Platelet Count 167, Mean Platelet Volume 10.8, Immature Granulocyte % (Auto) 1, Neutrophils (%) (Auto) 69, Lymphocytes (%) (Auto) 17, Monocytes (%) (Auto) 13H, Eosinophils (%) (Auto) 0, Basophils (%) (Auto) 0, Neutrophils # (Auto) 9.7H, Lymphocytes # (Auto) 2.4, Monocytes # (Auto) 1.9H, Eosinophils # (Auto) 0.0, Basophils # (Auto) 0.0, Immature Granulocyte # (Auto) 0.1 Microbiology 12/16/22 Urine Culture - Preliminary, Resulted Culture In Progress ZEFERINO KOROMA DO Dec 18, 2022 08:12
[2022-12-18 08:39] VITALS: BP 108/58
[2022-12-18] MEDS: DOCUSATE SODIUM 100 MG (COLACE) CAP PO SCH ×2 (08:39→22:12)
--- NOTE | 2022-12-18 09:24 | Anesthesia-Regional Post-Op ---
Regional Patient Condition Mental Status: Alert, Oriented x3 Circulation: Same as Pre-Op Headache: Absent Sensation: Full Recovery Motor Block: Absent Post Op Complications Complications None Follow Up Care/Instructions Patient Instructions None needed. Anesthesia/Patient Condition Patient is doing well, no complaints, stable vital signs, no apparent adverse anesthesia problems. No complications reported per nursing. CHERYL GENAO CRNA Dec 18, 2022 09:24
[2022-12-18 12:00] VITALS: BP 115/54
[2022-12-18] MEDS ORDERED: IBUPROFEN 600 MG (MOTRIN) TAB PO SCH (14:45)
[2022-12-18 16:19] VITALS: BP 112/62
[2022-12-18] MEDS: IBUPROFEN 600 MG (MOTRIN) TAB PO SCH ×2 (16:19→22:12)
[2022-12-18 22:12] VITALS: BP 112/66
[2022-12-19 06:08] VITALS: BP 111/59
[2022-12-19] MEDS: IBUPROFEN 600 MG (MOTRIN) TAB PO SCH ×3 (06:08→18:20)
--- NOTE | 2022-12-19 07:00 | Postpartum Progress Note ---
Note Note Day # 2 Subjective: Patient is without complaints. Ambulating, voiding. Tolerating a regular diet without nausea or vomiting. Normal lochia. Pain is well controlled with oral pain medications. Objective: Physical Exam: General - Alert and oriented, no apparent distress Abdomen - Soft, appropriately tender to palpation, non-distended, fundus firm at umbilicus Extremities - no edema, negative Karol's bilaterally Incision- c/d/i Assessment: POD 2 PLTCS Acute blood loss anemia Plan: Routine care. Encourage breast feeding. Encourage ambulation. Ferrous sulfate supplementation. Plan for discharge today Vitals - Labs Vital Signs - I&O Vital Signs Date Time Temp Pulse Resp B/P (MAP) Pulse Ox O2 Delivery O2 Flow Rate FiO2 12/19/22 06:08 36.4 74 18 111/59 (76) 99 Room Air 12/18/22 22:12 36.6 80 18 112/66 (81) 99 Room Air 12/18/22 16:19 36.3 84 18 112/62 (79) 99 Room Air 12/18/22 12:00 36.3 76 18 115/54 (74) 99 Room Air 12/18/22 08:39 36.3 80 18 108/58 (75) 98 Room Air I & O 12/19/22 07:00 Intake Total 1400 ml Balance 1400 ml Labs Microbiology 12/16/22 Urine Culture - Final, Complete 3 or more isolates Strep, Beta Hemolytic Group B No Susceptibility Performed See Comments ZEFERINO KOROMA DO Dec 19, 2022 07:00
[2022-12-19] MEDS: DOCUSATE SODIUM 100 MG (COLACE) CAP PO SCH (08:44)
[2022-12-19 12:01] VITALS: BP 120/65
[2022-12-19] MEDS: HYDROcodone/APAP 5 MG/325 MG (LORTAB) TAB PO PRN (12:13)
[2022-12-19 18:20] VITALS: BP 129/77
== END 2022-12-19 20:20 | disposition home or self-care (01) | DRG 787 ==
LOC: LDRP 19:30 → WS 12-17 16:51 → LDRP 12-17 16:51
PROVIDERS: ADMIT Family Medicine; ATTEND Family Medicine
PROC: 3E0DXGC Introduction of Other Therapeutic Substance into Mouth and Pharynx, External Approach (ICD-10-PCS; 2022-12-16)
PROC: 10D00Z1 Extraction of Products of Conception, Low, Open Approach (ICD-10-PCS; principal; 2022-12-17 14:41)
DX: O48.0 Post-term pregnancy (principal); D62 Acute posthemorrhagic anemia; O99.824 Streptococcus B carrier state complicating childbirth; Z3A.40 40 weeks gestation of pregnancy; Z37.0 Single live birth; O76 Abnormality in fetal heart rate and rhythm complicating labor and delivery; O69.81X0 Labor and delivery complicated by cord around neck, without compression, not applicable or unspecified; O90.81 Anemia of the puerperium
CPT/HCPCS: 36415; 81000; 83033; 85025; 86780; 86850; 86900; 86901; 87077; 87088; 94664

== ENCOUNTER 2023-02-28 10:59 | Emergency (ER) | payer OTHER, MEDICAID ==
[~2023-02-28] VITALS: Ht 170.2 cm; Wt 111.1 kg
[~2023-02-28 10:59] MED LIST changes: +ACHD5005 PO; +DOCU100C37 PO; +IBUP-844 PO
[2023-02-28 11:09] VITALS: BP 146/83
--- NOTE | 2023-02-28 13:53 | ED General ---
General Chief Complaint: Cough/Cold/Flu Symptoms Stated Complaint: INHALED BLACK MOLD AT WORK Nursing Triage Note: PT AMBULATE TRIAGE WITHOUT DIFFICULTY WITH C/O INHALING BLACK MOLD YESTERDAY AT WORK. PT STATES SHE WAS WASHING THE FLOORS AT WORK AND THE BLACK MOLD THAT WAS ON THE FLOOR SPLASHED ONTO HER. PT REPORTS COUGH, SOB, HEADACHE AT 0000 TODAY. PT STATES SYMPTOMS ARE WORSE THIS MORNING THAN LAST NIGHT AT WORK. PT'S S/O STATES HE HAS HAD THE SAME TYPE OF SYMPTOMS AND HAS RECENTLY GOTTEN OVER BEING SICK. Source of Information: Patient Exam Limitations: No Limitations History of Present Illness Date Seen by Provider: Feb 28, 2023 Time Seen by Provider: 11:41 Allergies and Home Medications Allergies Coded Allergies: No Known Drug Allergies (Unverified , 12/16/22) Patient Home Medication List Home Medication List Reviewed: Yes Docusate Sodium (Docusate Sodium) 100 Mg Capsule, 100 MG PO BID PRN for CONSTIPATION-1ST LINE Prescribed by: ZEFERINO KOROMA on 12/17/22 153 Hydrocodone/Acetaminophen (Hydrocodone-Acetamin 5-325 mg) 5 Mg-325 Mg Tablet, 1- 2 EA PO Q6HR PRN for PAIN-MODERATE (5-7) Prescribed by: ZEFERINO KOROMA on 12/17/22 1533 Ibuprofen (Ibu) 600 Mg Tablet, 600 MG PO Q6H Prescribed by: ZEFERINO KOROMA on 12/17/22 153 Vit/Iron Fumarate/FA ( Tablet) 27 Mg Iron-800 Mcg Tablet, 1 EACH PO DAILY, (Reported) Entered as Reported by: RAMILA FATIMA on 09/14/22 1801 Past [id number] Hx Patient Social History Tobacco Use?: No Smoking Status: Never a Smoker Smokeless Tobacco Frequency: Never a User Use of E-Cig and/or Vaping dev: No Use of E-Cig and/or Vaping Jeovany: Never a User Substance use?: Yes Substance type: Marijuana Substance frequency: Daily Alcohol Use?: Yes Alcohol Frequency: Rarely Pt feels they are or have been: No Past Medical History Surgery/Hospitalization HX: denies Currently Using CPAP: No Currently Using BIPAP: No Physical Exam Vital Signs Vital Signs - First Documented 02/28/23 11:09 Temp 36.8 Pulse 84 Resp 17 B/P (MAP) 146/83 (104) O2 Delivery Room Air Capillary Refill : Less Than 3 Seconds Height, Weight, BMI Height: '" Weight: 122lbs. oz. [id number]; 38.00 BMI Method: Progress/Results/Core Measures Suspected Sepsis SIRS Temperature: Pulse: 84 Respiratory Rate: 17 Blood Pressure 146 /83 Mean: 104 Results/Orders Lab Results Laboratory Tests Test 02/28/23 11:45 Range/Units Influenza Type A (RT-PCR) Not Detected Not Detecte Influenza Type B (RT-PCR) Not Detected Not Detecte SARS-CoV-2 RNA (RT-PCR) Not Detected Not Detecte My Orders Orders - FEMI BATEMAN MD Covid 19 Inhouse Test (02/28/23 11:41) Influenza A And B By Pcr (02/28/23 11:41) Vital Signs/I&O 02/28/23 02/28/23 11:09 11:17 Temp 36.8 Pulse 84 Resp 17 B/P (MAP) 146/83 (104) O2 Delivery Room Air Room Air Capillary Refill : Less Than 3 Seconds Blood Pressure Mean: 104 Departure Impression Primary Impression: Flu-like symptoms Disposition: 07 AGAINST MEDICAL ADVICE Condition: Against Medical Advice Departure-Patient Inst. Referrals: NO,LOCAL PHYSICIAN (PCP/Family) Primary Care Physician FEMI BATEMAN MD Feb 28, 2023 13:53
== END 2023-02-28 13:41 | disposition left against medical advice (07) ==
LOC: EDUNIT# 10:59 → ER 11:03
DX: R05.9 Cough, unspecified (principal); R06.02 Shortness of breath; R51.9 Headache, unspecified; Z20.822 Contact with and (suspected) exposure to COVID-19
CPT/HCPCS: 87636; 99283